=== PATIENT | female | born 1985 | race Caucasian/White ===

== ENCOUNTER → 2018-02-26 19:18 | Outpatient (REF) | payer OTHER, SELFPAY | LOC: LAB 19:18 | PROVIDERS: PCP Family Medicine; Visit Provider Otolaryngology | DX: L72.3 Sebaceous cyst (principal) | CPT/HCPCS: 87070; 87075; 87205 ==

== ENCOUNTER → 2020-03-31 09:25 | Outpatient (CLI) | payer OTHER, SELFPAY ==
[2020-03-31 09:32] LABS: Bacteria Urine None Seen
[2020-03-31 11:17] LABS: Appearance Urine UA CLEAR; Bilirubin Urine UA NEGATIVE (NEGATIVE); Color Urine UA YELLOW; Glucose Urine UA NEGATIVE (Negative); Ketones Urine UA NEGATIVE (NEGATIVE); Leukocyte Esterase Urine UA 1+ (NEGATIVE); Nitrite Urine UA NEGATIVE (Negative); Occult Blood Urine UA 3+ (Negative); Protein Urine UA NEGATIVE (Negative); Specific Gravity Urine UA <=1.005 (1.000-1.035); Urobilinogen Urine UA 0.2 E.U./dL (0.2)
[2020-03-31 11:18] LABS: pH Urine UA 5.5 (4.5-8.0)
[2020-03-31 11:26] LABS: Culture Indicated Urine Specimen Cultured; RBC Urine 5-10/HPF (0-5/HPF); WBC Urine 1-5/HPF (0-5/HPF)
== END ==
PROVIDERS: PCP Family Medicine; Referring Provider Family Medicine; Visit Provider Family Medicine
DX: R30.0 Dysuria (principal); R35.0 Frequency of micturition; R39.15 Urgency of urination
CPT/HCPCS: 81001; 87077; 87086; 87186

== ENCOUNTER → 2020-11-09 16:13 | Outpatient (CLI) | payer OTHER, SELFPAY ==
[2020-11-09 17:43] LABS: Add Manual Diff / Slide Review NO; Basophils Absolute Auto 100 /uL (0-100); Basophils Percent Auto 0.9 % (0-2); Eosinophils Absolute Auto 100 /uL (0-450); Eosinophils Percent Auto 1.1 % (2-4); Hematocrit 39.9 % (36-46); Hemoglobin 13.4 g/dL (12.0-16.0); Lymphocytes Absolute Auto 2500 /uL (1100-4500); Lymphocytes Percent Auto 32.1 % (25-40); Mean Corpuscular HGB Conc 33.6 % (30-36); Mean Corpuscular Volume 86.5 fL (80-100); Monocytes Absolute Auto 300 /uL (0-900); Monocytes Percent Auto 3.4 % (3-14); Neutrophils Absolute Auto 4900 /uL (1500-7000); Neutrophils Percent Auto 62.5 % (50-75); Platelet Count 237 X10^3/uL (150-400); Red Blood Cell Count 4.61 X10^6/uL (4.0-5.2); Red Cell Distribution Width 12.7 % (11.6-14.8); White Blood Cell Count 7.9 X10^3/uL (4.5-11.0)
[2020-11-09 18:01] LABS: Alanine Aminotransferase 12 IU/L (<35); Albumin 4.5 g/dL (3.5-5.0); Albumin Globulin Ratio 1.5 (1.0-2.8); Alkaline Phosphatase 68 U/L (38-126); Aspartate Aminotransferase 21 IU/L (14-36); BUN Creatinine Ratio 21.1 (6-22); Bilirubin Total 0.2 mg/dL (0.2-1.3); Blood Urea Nitrogen 15 mg/dL (7-17); Calcium 9.8 mg/dL (8.4-10.2); Carbon Dioxide 31 mmol/L (22-32); Chloride 103 mmol/L (98-107); Estimated Glomerular Filt Rate > 60.0 mL/min (>60); Glucose 78 mg/dL (70-100); HEMOLYSIS < 15 (0-50); Potassium 3.5 mmol/L (3.4-5.1); Sodium 141 mmol/L (137-145); Total Protein 7.5 g/dL (6.3-8.2)
[2020-11-09 18:29] LABS: Vitamin D 25 Hydroxy (D3) 27.6 ng/mL (30.0-100.0)
[2020-11-13 09:40] LABS: Free T3, Triiodothyronine Free 4.13 pg/mL (2.77-5.27); Free T4, Direct Thyroxine 1.29 ng/dL (0.78-2.19)
[2020-11-14 06:13] LABS: Thyroid Peroxidase Antibodies <9 IU/mL (0-34)
[2020-11-15 02:10] LABS: Anti Thyroglobulin Antibody 1.3 IU/mL (0.0-0.9)
== END ==
PROVIDERS: PCP Family Medicine; Referring Provider Family Medicine; Visit Provider Family Medicine
DX: N92.6 Irregular menstruation, unspecified (principal); E55.9 Vitamin D deficiency, unspecified
CPT/HCPCS: 36415; 80053; 82306; 84439; 84443; 84481; 85025; 86376; 86800

== ENCOUNTER → 2022-04-21 09:15 | Outpatient (CLI) | payer OTHER, SELFPAY | PROVIDERS: PCP Family Medicine; Visit Provider Registered Nurse | DX: J02.9 Acute pharyngitis, unspecified (principal) | CPT/HCPCS: 87070 ==

== ENCOUNTER → 2023-12-25 11:41 | Outpatient (CLI) | payer OTHER, SELFPAY ==
[2023-12-25 12:14] LABS: Add Manual Diff / Slide Review NO; Basophils Absolute Auto 0 /uL (0-100); Basophils Percent Auto 0.6 % (0-2); Eosinophils Absolute Auto 0 /uL (0-450); Eosinophils Percent Auto 0.5 % (2-4); Hematocrit 39.3 % (36-46); Hemoglobin 13.3 g/dL (12.0-16.0); Lymphocytes Absolute Auto 1500 /uL (1100-4500); Lymphocytes Percent Auto 24.2 % (25-40); Mean Corpuscular HGB Conc 33.8 % (30-36); Mean Corpuscular Hemoglobin 29.3 PG (26-34); Mean Corpuscular Volume 86.5 fL (80-100); Monocytes Absolute Auto 400 /uL (0-900); Monocytes Percent Auto 5.6 % (3-14); Neutrophils Absolute Auto 4300 /uL (1500-7000); Neutrophils Percent Auto 69.1 % (50-75); Platelet Count 224 X10^3/uL (150-400); Red Blood Cell Count 4.54 X10^6/uL (4.0-5.2); Red Cell Distribution Width 12.9 % (11.6-14.8); White Blood Cell Count 6.2 X10^3/uL (4.5-11.0)
[2023-12-25 12:29] LABS: Alanine Aminotransferase 16 IU/L (<35); Albumin 4.9 g/dL (3.5-5.0); Albumin Globulin Ratio 1.8 (1.0-2.8); Alkaline Phosphatase 46 U/L (38-126); Aspartate Aminotransferase 23 IU/L (14-36); Bilirubin Total 0.8 mg/dL (0.2-1.3); Blood Urea Nitrogen 9 mg/dL (7-17); Calcium 9.6 mg/dL (8.4-10.2); Carbon Dioxide 28 mmol/L (22-32); Chloride 106 mmol/L (98-107); Estimated Glomerular Filt Rate > 60 mL/min (>60); Globulin 2.8 g/dL (1.7-4.1); Glucose 96 mg/dL (70-100); HEMOLYSIS < 15 (0-50); Potassium 3.8 mmol/L (3.4-5.1); Sodium 141 mmol/L (137-145); Total Protein 7.7 g/dL (6.3-8.2)
[2023-12-25 13:09] LABS: TSH w/ Reflex to FT4 0.76 uIU/mL (0.47-4.68)
== END ==
PROVIDERS: PCP Student in an Organized Health Care Education/Training Program; Referring Provider Student in an Organized Health Care Education/Training Program; Visit Provider Student in an Organized Health Care Education/Training Program
DX: R53.83 Other fatigue (principal)
CPT/HCPCS: 36415; 80053; 84443; 85025

== ENCOUNTER → 2024-06-18 09:17 | Outpatient (CLI) | payer OTHER, SELFPAY ==
[2024-06-18 10:37] LABS: Cholesterol 208 mg/dL (140-199); HDL Cholesterol 54 mg/dL (40-60); LDL Cholesterol Calculated 131 mg/dL (<100); Triglycerides 114 mg/dL (35-150)
[2024-06-18 10:51] LABS: Vitamin D 25 Hydroxy (D3) 36.8 ng/mL (30.0-100.0)
[2024-06-18 11:55] LABS: Folate > 20.0 ng/mL (2.76-20.0); Vitamin B12 454 pg/mL (239-931)
== END ==
PROVIDERS: PCP Student in an Organized Health Care Education/Training Program; Referring Provider Student in an Organized Health Care Education/Training Program; Visit Provider Student in an Organized Health Care Education/Training Program
DX: Z51.81 Encounter for therapeutic drug level monitoring (principal); E55.9 Vitamin D deficiency, unspecified; E72.12 Methylenetetrahydrofolate reductase deficiency; F41.1 Generalized anxiety disorder; F32.9 Major depressive disorder, single episode, unspecified
CPT/HCPCS: 36415; 80061; 82306; 82607; 82746

== ENCOUNTER → 2024-12-06 10:56 | Outpatient (CLI) | payer OTHER, SELFPAY ==
--- NOTE | 2024-12-06 10:58 | DI.US.S_ITS ---
PROCEDURE: US PELVIC LIMITED INDICATIONS: lump/pain injuinal region TECHNIQUE: Real-time transabdominal scanning was performed of the right inguinal region, with image documentation. COMPARISON: None. FINDINGS/IMPRESSION: Right inguinal hernia containing fat and fluid. The neck measures 0.6 x 0.9 centimeter. This is partially reducible. We strive to produce accurate, complete, and clear reports of imaging services. To assist us in improving patient care, this report was composed using standard report templates and voice recognition software. Therefore, it may contain abnormal punctuation, insertions and/or omissions. Occasional wrong-word or sound-alike substitutions may occur. Though we review the report and make efforts to correct it, we do recommend that the report be read carefully in proper context to recognize any text inaccuracies. Dictated by: Vince Mcleod M.D. on 12/09/2024 at 9:03 Approved by: Vince Mcelod M.D. on 12/09/2024 at 9:38
== END ==
PROVIDERS: PCP Student in an Organized Health Care Education/Training Program; Referring Provider Student in an Organized Health Care Education/Training Program; Visit Provider Student in an Organized Health Care Education/Training Program
DX: K40.30 Unilateral inguinal hernia, with obstruction, without gangrene, not specified as recurrent (principal); R10.31 Right lower quadrant pain
CPT/HCPCS: 76857

== ENCOUNTER → 2024-12-20 09:23 | Outpatient (CLI) | payer OTHER, SELFPAY ==
[2024-12-20 10:47] LABS: Cholesterol 174 mg/dL (140-199); HDL Cholesterol 73 mg/dL (40-60); LDL Cholesterol Calculated 87 mg/dL (<100); Triglycerides 71 mg/dL (35-150)
== END ==
PROVIDERS: PCP Student in an Organized Health Care Education/Training Program; Referring Provider Student in an Organized Health Care Education/Training Program; Visit Provider Student in an Organized Health Care Education/Training Program
DX: Z51.81 Encounter for therapeutic drug level monitoring (principal)
CPT/HCPCS: 36415; 80061

== ENCOUNTER 2025-06-04 06:18 | Day surgery (SDC) | payer OTHER, SELFPAY ==
[2025-05-23 15:18] VITALS: BMI 23.6
[2025-06-04] VITALS (9 sets, daily range): BP systolic 103–124; BP diastolic 58–72; PULSE 62–79; RESP 12–19; TEMP 36.2–36.6; O2SAT 94–99
[2025-06-04] MEDS: ACETAMINOPHEN 325 MG TABLET 975 MG PO (06:57)
[2025-06-04] MEDS: LACTATED RINGERS 1,000 ML 42 ML IV ×2 (06:58→11:10)
--- NOTE | 2025-06-04 07:38 | PM.HP.IH.1 ---
History of Present Illness History of Present Illness Date Patient Seen: 06/04/25 Time Patient Seen: 07:39 Chief complaint: Right Lap Inguinal Hernia Repair Robot Assist. Narrative: Selene is a 39 year old woman with a symptomatic right inguinal hernia. See office note for details. 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) depression (~2013) Surgical History Status post dilation and curettage (04/15/16) Family History Father Age: 81 Lymphoma, unspecified body region, unspecified lymphoma type Parkinson's disease Grandfather Diabetes mellitus Parkinson's disease Grandmother Brain tumor Mother Age: 72 Anxiety Mental health problem High cholesterol Hypothyroidism Grandfather Dementia Grandmother Cerebrovascular accident (CVA), unspecified mechanism Son Dysplastic kidney Social History marital status: number of children: 2 household members: spouse and family lives independently: Yes pets and animals: Yes education level: college occupational status: other current occupational exposures/hazards: No gian/zoroastrian: Rastafarian other: walking the dogs, hiking, reading seatbelt use: always helmet use: Yes Smoking Status: Never smoker alcohol intake: current substance use type: does not use during the past year weight has: increased > 10 lbs well-balanced diet: about half the time daily servings fruits/ve-1 caffeine: Yes (1-2 drinks per day) eating out: 1-3 times/week Type(s) of exercise: walking, other and running frequency: 1-2 times per week duration: 15-30 minutes/day Meds Home Medications and Allergies Home Medications ?Medication ?Instructions ?Recorded ?Confirmed ?Type cholecalciferol (vitamin D3) 125 125 mcg PO DAILY 06/12/24 06/04/25 History mcg (5,000 unit) capsule brexpiprazole 0.25 mg tablet 0.25 mg PO DAILY taper #30 tabs 06/02/25 06/04/25 Rx escitalopram oxalate 20 mg tablet 20 mg PO DAILY #90 tabs 06/02/25 06/04/25 Rx Allergies Allergy/AdvReac Type Severity Reaction Status Date / Time Sulfa (Sulfonamide Allergy Mild Verified 06/04/25 07:09 Antibiotics) (SULFA (SULFONAMIDE ANTIBIOTICS)) Exam Vital Signs (past 8 hours): - 06/04/25 07:00 Temperature 97.8 F Pulse Rate 77 Respiratory Rate 16 Blood Pressure 103/63 Pulse Oximetry 96 Oxygen Delivery Method Room Air Oxygen Delivery Method Room Air Const General: healthy appearing Assessment & Plan Assessment and plan (1) Right inguinal hernia: Status: Acute Plan Robotic right possible left inguinal hernia repair with mesh Time-Based Coding :: [TOTAL MINUTES] spent with patient and on the chart (including review of chart, obtaining history, exam, reviewing outside data, placing orders, documenting exam and treatment plan, and counseling patient) on [DATE]. [employer] Economist Document charge(s): No
[2025-06-04] MEDS: FAMOTIDINE 20 MG/2 ML VIAL IV (07:43)
[2025-06-04] MEDS: SCOPOLAMINE 1 PATCH TOP (07:43)
[2025-06-04] MEDS: ACETAMINOPHEN IV 1,000 MG/100 ML VIAL 400 MG IV (08:41)
--- NOTE | 2025-06-04 08:41 | SUR.OPER ---
Supine on padded OR bed, head on pillow, face protected with face foam, arms padded and tucked at sides, legs uncrossed, safety belt at thigh, provider approved final positioning .
--- NOTE | 2025-06-04 10:08 | P.OP_ITS ---
Operative Date/Time/Diagnoses Date of procedure: 06/04/25 Time of procedure: 10:09 Pre-op diagnosis: Right inguinal hernia Post-op diagnosis: other (Right indirect inguinal hernia) Procedure & Clinicians Procedure: Robotic right inguinal hernia repair with mesh Same procedure(s) as scheduled: Yes Surgeon: Ej Mittal Assisted?: Yes Underbaster: Sam Alcazar Anesthesia Type: General Operative Notes Findings: Small indirect right inguinal hernia Applied: none Estimated Blood Loss (mL): 5 Procedure in detail: The patient was given preoperative antibiotics. The patient was brought to the operating room, placed on the table in the supine position with the arms tucked and general anesthesia was induced. The abdomen was prepped and draped in the usual fashion. A time-out was performed. A 1 cm transverse incision was created superior to the umbilicus and dissection was carried down to the fascia. The fascia was grasped with a Eduardo clamp to elevate the abdominal wall. The fascia was scored transversely with cautery. A Peon clamp was used to quintana the peritoneum. The 12 mm robotic port was placed and the abdomen was insufflated to 15 mmHg. The camera was inserted, there was no evidence of any injury from the entry. There was a small indirect right inguinal hernia. 8 mm ports were placed under direct vision in the mid left and mid right abdomen. The patient was positioned in Trendelenburg. The robot was docked. We created right peritoneal flap. The peritoneum was dissected down to the internal ring. Attempts were made to dissect the hernia sac off the round ligament but it was too adherent so the round ligament was divided with a hot scissors and some additional hemostasis was applied with the fenestrated bipolar. An extra-large right Bard mesh was placed over the defect with the medial edge overlapping the pubic symphysis. The mesh was secured to Chester's ligament with a single 3-0 Vicryl stitch. We then closed the peritoneal flap with a running 3-0 barbed suture. There was a small defect where the peritoneum has been adherent to the round ligament. This was closed with a [id number] stitch using the 3-0 Vicryl. We took one last look around the abdomen and saw no other abnormalities. The suture was removed and accounted for. The robot was undocked. The 8 mm ports were removed under direct vision. The abdomen was desufflated. The 12 mm port was removed. Additional local was injected into the fascia and the fascial incision was closed with 2 interrupted 0 Vicryl sutures. The skin incisions were closed with 4 Monocryl, Steri-Strips and Band- Aids. Sam TALAVERA provided assistance with exposure, retraction and closure of incisions. Complications: none Post-operative Condition: stable Disposition: PACU
--- NOTE | 2025-06-04 11:11 | SUR.PHASEII ---
medicated for nausea. at bedside.
--- NOTE | 2025-06-04 11:43 | SUR.PHASEII ---
drsgs dry and intact. states relief from pain and nausea after meds
--- NOTE | 2025-06-04 11:44 | SUR.PHASEII ---
voids x 1 prior to discharge
== END 2025-06-04 11:38 | disposition home or self-care (01) ==
PROVIDERS: PCP Student in an Organized Health Care Education/Training Program; Referring Provider Surgery; Visit Provider Surgery
PROC: 0YQ54ZZ Repair Right Inguinal Region, Percutaneous Endoscopic Approach (ICD-10-PCS; CPT 49650; principal; 2025-06-04 07:45)
DX: K40.90 Unilateral inguinal hernia, without obstruction or gangrene, not specified as recurrent (principal)
CPT/HCPCS: 49650; 81025; S2900; C1781; J0131; J0689; J1100; J1885; J2250; J2405; J2704; J3010; J3490; J7120